=== PATIENT | male | born 1990 | race Caucasian/White ===

== ENCOUNTER 2018-01-05 22:00 | Emergency (ER) | payer SELFPAY ==
[~2018-01-05] VITALS: Ht 180.3 cm; Wt 83.9 kg
--- NOTE | 2018-01-05 22:49 | NUR ---
BIBFAMILY C/O ETOH, PER FAMILY PT IS MORE ALTERED THAN USUAL. PER FAMILY PT'S LAST DRINK WAS LAST NIGHT AND WAS FOUND DOWN IN RESTROOM X 1 HR. PER PT, HE STATES HIS LAST DRINK WAS 2HRS AGO. PT DENIES SI, HI. PT DENIES HAVING ANY PAIN. PT DENIES TRAUMA. KO UNKNOWN. SKIN WARM AND DRY. NO S/S OF ACUTE DISTRESS NOTED. 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 PT SAFETY AND COMFORT MEASURES IN PLACE. PT AMBULATED WITH ASSIATNCE TO ER BED 15. FAMILY MEMBERS BEDSIDE.
[2018-01-05] MEDS ORDERED: ONDANSETRON HCL/PF 4 MG/2 ML VIAL ONE (23:19)
[2018-01-05] MEDS ORDERED: ONDANSETRON HCL/PF 4 MG/2 ML VIAL IVP ONE (23:30)
[2018-01-05] MEDS ORDERED: IV NS 0.9% 1,000 ML BAG IV ONE (23:30)
--- NOTE | 2018-01-05 23:38 | NUR ---
URINE COLLECTED. CALLED LAB FOR CFO.
[2018-01-05 23:46] LABS: BASOPHILS % (AUTO) 0.2 % (0.0-2.0); EOSINOPHILS % (AUTO) 2.2 % (0.0-6.0); HEMATOCRIT 49 % (39-51); HEMOGLOBIN 15.9 g/dL (13.5-17.5); LYMPHOCYTES # (AUTO) 1.4 /CMM (0.8-4.8); MEAN CORPUSCULAR HEMOGLOBIN 27 PG (26.0-33.0); MEAN CORPUSCULAR HGB CONC 33 g/dl (31.0-36.0); MEAN CORPUSCULAR VOLUME 84 fL (80-96); MONOCYTES # (AUTO) 0.4 /CMM (0.1-1.30); MONOCYTES % (AUTO) 3.9 % (2.0-12.0); NEUTROPHILS # (AUTO) 7.3 /CMM (1.8-8.9); NEUTROPHILS % (AUTO) 78.7 % (43.0-81.0); PLATELET COUNT (AUTO) 208 /CMM (150-450); RED BLOOD CELL COUNT(AUTO) 5.84 MIL/uL (4.5-6.0); WHITE BLOOD COUNT (AUTO) 9.3 K/uL (4.3-11.0)
[2018-01-05 23:57] LABS: INR 0.92 (0.87-1.13)
[2018-01-06 00:07] LABS: ALBUMIN 4.2 g/dL (3.4-5.0); BILIRUBIN,DIRECT 0.1 mg/dL (0.0-0.2); BILIRUBIN,TOTAL 0.3 mg/dL (0.2-1.0); CALCIUM, SERUM 8.6 mg/dL (8.5-10.1); CREATININE 1.1 mg/dL (0.6-1.3); POTASSIUM 3.9 mmol/L (3.5-5.1); TOTAL PROTEIN, SERUM 7.7 g/dL (6.4-8.2)
[2018-01-06 00:08] LABS: THYROID STIMULATING HORMONE 1.706 uIU/mL (0.358-3.74)
--- NOTE | 2018-01-06 01:00 | NUR ---
Patient discharged to home in stable condition. Written and verbal after care instructions given. Patient verbalizes understanding of instruction.IV removed. Catheter intact and site benign. Pressure and 4x4 applied to site. No bleeding noted. PT'S FAMILY BEDSIDE TO HELP PT WALK TO THE CAR. PT AMBULATED WITH STEADY GAIT NOTED WITH THE HELP OF FAMILY.
[2018-01-06 01:03] VITALS: BP 128/84
== END 2018-01-06 01:04 | disposition home or self-care (01) ==
LOC: ER 22:07
DX: F10.10 Alcohol abuse, uncomplicated (principal); R53.83 Other fatigue; Y90.8 Blood alcohol level of 240 mg/100 ml or more
CPT/HCPCS: 36415; 80048-TC; 80076-TC; 80305; 82140-TC; 84443-TC; 85025-TC; 85730-TC; A4606; G0480; J2405; J7030; Z7610